=== PATIENT | female | born 2000 | race Caucasian/White ===

== ENCOUNTER → 2024-03-21 16:03 | Outpatient (CLI) | payer BC, SELFPAY ==
--- NOTE | 2024-03-21 16:09 | DI.RAD.S_ITS ---
PROCEDURE: XR ANKLE RT MIN 3V INDICATIONS: R ANKLE PAIN TECHNIQUE: 3 views of the ankle were acquired. COMPARISON: None. FINDINGS: Bones: No fractures or dislocations. Ankle mortise is normally aligned. No suspicious bony lesions. Soft tissues: No tibiotalar joint effusion. Achilles tendon appears normal. IMPRESSION: No visualized acute fracture or dislocation. However, if clinical concern and/or pain persist, short interval imaging followup in 7-10 days is recommended, as occult injury cannot be definitively excluded. Dictated by: Tammi Valdez M.D. on 03/21/2024 at 19:58 Approved by: Tammi Valdez M.D. on 03/21/2024 at 19:59
== END ==
PROVIDERS: Referring Provider Family Medicine; Visit Provider Family Medicine
DX: M25.571 Pain in right ankle and joints of right foot (principal)
CPT/HCPCS: 73610